=== PATIENT | male | born 1950 | race Caucasian/White ===

== ENCOUNTER → 2016-07-23 | Outpatient (CLI) | payer MEDICARE, OTHER ==
[2016-07-23 09:22] LABS: Basophils # (auto) 0 uL; Basophils % (auto) 0.6 % (0.0-2.0); Eosinophils # (auto) 0.2 uL; Eosinophils % (auto) 4.1 % (0.0-7.0); Hematocrit 40.7 % (41.0-53.0); Hemoglobin 13.9 g/dL (13.5-17.5); Lymphocytes # (auto) 1.5 uL; Lymphocytes % (auto) 31.2 % (10.0-50.0); Mean Corpuscular Hemoglobin 31.4 pg (28.0-32.0); Mean Corpuscular Hgb Conc. 34.1 g/dL (32.0-36.0); Mean Platelet Volume 8.1 fL (7.4-10.4); Monocytes # (auto) 0.4 uL; Monocytes % (auto) 8.8 % (0.0-12.0); Neutrophils # (auto) 2.6 uL; Neutrophils % (auto) 55.3 % (37.0-80.0); Platelet Count (auto) 192 10^3/uL (140-450); Red Cell Distribution Width 13.9 % (11.6-16.0); White Blood Cell 4.8 10^3/uL (4.4-10.8)
[2016-07-23 09:30] LABS: Urine Bilirubin Negative (Negative); Urine Blood Negative /uL (Negative); Urine Color Yellow (Yellow); Urine Glucose Normal (Normal); Urine Ketone Negative (Negative); Urine Nitrite Negative (Negative); Urine RBC 3 /hpf (0 - 3); Urine Urobilinogen Normal (Negative)
[2016-07-23 09:42] LABS: Anion Gap 7 (5-15); Blood Urea Nitrogen 18 mg/dL (7-18); Carbon Dioxide 26 mmol/L (21-32); Chloride 107 mmol/L (98-107); Glucose 107 mg/dL (74-106); Potassium 3.5 mmol/L (3.5-5.1); Sodium 140 mmol/L (136-145)
[2016-07-23 09:43] LABS: Albumin 3.6 g/dL (3.4-5.0); Alkaline Phosphatase 64 U/L (45-117); Aspartate Aminotransferase 22 U/L (15-37); BUN/Creatinine Ratio 23.7; Bilirubin, Total 0.6 mg/dL (0.2-1.0); Calcium 8.2 mg/dL (8.5-10.1); Cholesterol 129 mg/dL (< 200); GFR African American 132 mL/min; GFR Non-African American 109 mL/min; HDL Cholesterol 52 mg/dL (40-59); LDL Cholesterol 78 mg/dL (< 100); Total Protein 7.1 g/dL (6.4-8.2); Triglycerides 87 mg/dL (< 150)
== END | disposition home or self-care (01) ==
LOC: LAB 09:00
PROVIDERS: ATTEND Internal Medicine
DX: N40.0 Benign prostatic hyperplasia without lower urinary tract symptoms (principal); I48.91 Unspecified atrial fibrillation
CPT/HCPCS: 36415; 80053; 80061; 81001; 82043; 84153; 84439; 84443; 84484; 85025; 85379; 85652

== ENCOUNTER → 2016-07-25 | Outpatient (CLI) | payer MEDICARE, OTHER ==
[~2016-07-25] MED LIST: IOHEXOL 350 MG/ML 100ML IJ ONE
== END | disposition home or self-care (01) ==
LOC: CT 10:00
PROVIDERS: ATTEND Internal Medicine
DX: I51.7 Cardiomegaly (principal); R09.89 Other specified symptoms and signs involving the circulatory and respiratory systems; R42 Dizziness and giddiness; R79.89 Other specified abnormal findings of blood chemistry
CPT/HCPCS: 71275; Q9967

== ENCOUNTER → 2016-09-15 | Day surgery (SDC) | payer MEDICARE, OTHER ==
[2016-09-11 11:00] LABS: Basophils # (auto) 0 uL; Basophils % (auto) 0.7 % (0.0-2.0); CONDITION Y; Eosinophils # (auto) 0.2 uL; Eosinophils % (auto) 4.2 % (0.0-7.0); Hematocrit 40.8 % (41.0-53.0); Hemoglobin 13.9 g/dL (13.5-17.5); Lymphocytes # (auto) 1.9 uL; Lymphocytes % (auto) 33.1 % (10.0-50.0); Mean Corpuscular Hgb Conc. 34.1 g/dL (32.0-36.0); Mean Platelet Volume 8.7 fL (7.4-10.4); Monocytes # (auto) 0.5 uL; Monocytes % (auto) 9.6 % (0.0-12.0); Neutrophils % (auto) 52.4 % (37.0-80.0); Platelet Count (auto) 207 10^3/uL (140-450); White Blood Cell 5.7 10^3/uL (4.4-10.8)
[2016-09-11 11:11] LABS: INR 0.94 (0.9-1.15); Partial Thromboplastin Time 27.2 sec (22.64-33.71); Prothrombin Time 10.2 sec (9.37-12.3)
[~2016-09-15] VITALS: Ht 182.9 cm; Wt 101.6 kg
[~2016-09-15] MED LIST changes: +ASPI81TA27 PO; +HYDR25TA4 PO; -IOHEXOL 350 MG/ML 100ML IJ ONE; +LOSA50TA6 PO; +MECL-87 PO; +METO-169 PO; +SODIUM CHLORIDE LOCK 10 ML ONE; +diphenhdrAMINE HCL 50 MG/1 ML VL ONE
[2016-09-15] MEDS: MIDAZOLAM HCL 5 MG/ML-1ML VIAL ONE ×2 (11:36→11:40)
[2016-09-15] MEDS: fentaNYL CITRATE 100 MCG/2 ML VL ONE ×2 (11:36→11:40)
[2016-09-15 12:25] VITALS: BP 132/74
== END | disposition home or self-care (01) ==
LOC: GI 09:42
PROVIDERS: ATTEND Internal Medicine Gastroenterology
DX: K63.5 Polyp of colon (principal); K64.8 Other hemorrhoids; K64.4 Residual hemorrhoidal skin tags; Z90.49 Acquired absence of other specified parts of digestive tract
CPT/HCPCS: 36415; 45380; 45385; 85025; 85610; 85730; J2250

== ENCOUNTER → 2016-10-24 | Outpatient (CLI) | payer MEDICARE, OTHER ==
[~2016-10-24] MED LIST changes: -SODIUM CHLORIDE LOCK 10 ML ONE; -diphenhdrAMINE HCL 50 MG/1 ML VL ONE
[2016-10-24 10:49] LABS: Basophils # (auto) 0 uL; Basophils % (auto) 0.7 % (0.0-2.0); CONDITION Y; Eosinophils # (auto) 0.3 uL; Eosinophils % (auto) 6.2 % (0.0-7.0); Hematocrit 40.8 % (41.0-53.0); Lymphocytes % (auto) 36.3 % (10.0-50.0); Mean Corpuscular Hemoglobin 31.3 pg (28.0-32.0); Mean Corpuscular Hgb Conc. 34.3 g/dL (32.0-36.0); Mean Corpuscular Volume 91.2 fL (80.0-100.0); Mean Platelet Volume 8.3 fL (7.4-10.4); Monocytes # (auto) 0.5 uL; Monocytes % (auto) 9.5 % (0.0-12.0); Neutrophils # (auto) 2.7 uL; Neutrophils % (auto) 47.3 % (37.0-80.0); Platelet Count (auto) 203 10^3/uL (140-450); Red Cell Distribution Width 13.3 % (11.6-16.0); White Blood Cell 5.7 10^3/uL (4.4-10.8)
[2016-10-24 11:03] LABS: Albumin 3.7 g/dL (3.4-5.0); Bilirubin, Total 0.5 mg/dL (0.2-1.0); Calcium 8.2 mg/dL (8.5-10.1); Potassium 3.6 mmol/L (3.5-5.1); Total Protein 7.1 g/dL (6.4-8.2)
== END | disposition home or self-care (01) ==
LOC: LAB 10:20
PROVIDERS: ATTEND Internal Medicine
DX: R59.1 Generalized enlarged lymph nodes (principal)
CPT/HCPCS: 36415; 80053; 83615; 85025

== ENCOUNTER 2017-02-28 19:19 | Emergency (ER) | payer MEDICARE, OTHER ==
[~2017-02-28] VITALS: Ht 182.9 cm; Wt 104.3 kg
[2017-02-28 20:48] LABS: Basophils # (auto) 0 uL; Basophils % (auto) 0.8 % (0.0-2.0); Eosinophils # (auto) 0.1 uL; Eosinophils % (auto) 2.3 % (0.0-7.0); Hematocrit 42.1 % (41.0-53.0); Hemoglobin 14.4 g/dL (13.5-17.5); Lymphocytes # (auto) 0.7 uL; Lymphocytes % (auto) 15.3 % (10.0-50.0); Mean Corpuscular Hemoglobin 31.4 pg (28.0-32.0); Mean Corpuscular Hgb Conc. 34.1 g/dL (32.0-36.0); Monocytes # (auto) 0.7 uL; Monocytes % (auto) 13.9 % (0.0-12.0); Neutrophils # (auto) 3.3 uL; Neutrophils % (auto) 67.7 % (37.0-80.0); Platelet Count (auto) 155 10^3/uL (140-450); Red Blood Cells 4.58 10^6/uL (4.5-5.90); Red Cell Distribution Width 13.3 % (11.8-14.3); White Blood Cell 4.8 10^3/uL (4.4-10.8)
[2017-02-28 20:57] LABS: Alanine Aminotransferase 33 U/L (16-61); Albumin 3.6 g/dL (3.4-5.0); Alkaline Phosphatase 57 U/L (45-117); Anion Gap 9 (5-15); Aspartate Aminotransferase 22 U/L (15-37); BUN/Creatinine Ratio 11.6; Bilirubin, Total 0.3 mg/dL (0.2-1.0); Blood Urea Nitrogen 10 mg/dL (7-18); Carbon Dioxide 26 mmol/L (21-32); Chloride 104 mmol/L (98-107); GFR African American 114 mL/min; GFR Non-African American 94 mL/min; Glucose 106 mg/dL (74-106); Magnesium 2.3 mg/dL (1.6-2.6); Potassium 3.5 mmol/L (3.5-5.1); Sodium 139 mmol/L (136-145); Total Protein 7.5 g/dL (6.4-8.2)
[2017-03-01] VITALS: BP 159/67
== END 2017-03-01 06:03 | disposition left against medical advice (07) ==
LOC: ER 19:19
DX: R50.9 Fever, unspecified (principal); R10.9 Unspecified abdominal pain; Z53.21 Procedure and treatment not carried out due to patient leaving prior to being seen by health care provider
CPT/HCPCS: 36415; 74176; 80053; 83735; 84484; 85025; 93005

== ENCOUNTER → 2017-06-22 | Outpatient (CLI) | payer BC, OTHER | END | disposition home or self-care (01) | LOC: LAB 08:38 | PROVIDERS: ATTEND Internal Medicine | DX: R59.1 Generalized enlarged lymph nodes (principal) | CPT/HCPCS: 36415; 82565; 84520 ==

== ENCOUNTER → 2017-11-04 | Outpatient (CLI) | payer BC, OTHER ==
[2017-11-04 09:09] LABS: Basophils # (auto) 0.1 uL; Basophils % (auto) 2.6 % (0.0-2.0); Eosinophils # (auto) 0.3 uL; Eosinophils % (auto) 5.5 % (0.0-7.0); Hematocrit 42.7 % (41.0-53.0); Hemoglobin 14.4 g/dL (13.5-17.5); Lymphocytes # (auto) 1.7 uL; Lymphocytes % (auto) 32.9 % (10.0-50.0); Mean Corpuscular Hgb Conc. 33.7 g/dL (32.0-36.0); Mean Corpuscular Volume 91.9 fL (80.0-100.0); Monocytes # (auto) 0.4 uL; Monocytes % (auto) 8.6 % (0.0-12.0); Neutrophils # (auto) 2.6 uL; Neutrophils % (auto) 50.4 % (37.0-80.0); Platelet Count (auto) 172 10^3/uL (140-450); Red Blood Cells 4.64 10^6/uL (4.5-5.90); Red Cell Distribution Width 13.4 % (11.8-14.3); White Blood Cell 5.1 10^3/uL (4.4-10.8)
[2017-11-04 09:12] LABS: Urine Bacteria NONE SEEN /hpf (None Seen); Urine Blood Negative /uL (Negative); Urine Mucus FEW (None Seen); Urine Specific Gravity 1.018 (1.001-1.035); Urine WBC <1 /hpf (0 - 3)
[2017-11-04 09:35] LABS: Albumin 3.6 g/dL (3.4-5.0); BUN/Creatinine Ratio 14.1; Calcium 8.5 mg/dL (8.5-10.1); Potassium 3.5 mmol/L (3.5-5.1)
[2017-11-04 09:37] LABS: Bilirubin, Total 0.5 mg/dL (0.2-1.0)
[2017-11-04 10:10] LABS: Free T4 (Free Thyroxine) 0.95 ng/dL (0.89-1.76); Prostate Specific Antigen 0.67 ng/mL (0.0-4.0)
== END | disposition home or self-care (01) ==
LOC: LAB 08:44
PROVIDERS: ATTEND Internal Medicine
DX: I10 Essential (primary) hypertension (principal); R35.1 Nocturia; Z79.82 Long term (current) use of aspirin
CPT/HCPCS: 36415; 80053; 81001; 82043; 82150; 82306; 83036; 83690; 84153; 84439; 84443; 85025; 86677

== ENCOUNTER → 2017-12-02 | Outpatient (CLI) | payer BC ==
[~2017-12-02] MED LIST changes: +LOSA-46 PO; -LOSA50TA6 PO
[2017-12-02 11:18] LABS: Basophils # (auto) 0.1 uL; Basophils % (auto) 1.4 % (0.0-2.0); Eosinophils # (auto) 0.2 uL; Eosinophils % (auto) 5.1 % (0.0-7.0); Hematocrit 41.5 % (41.0-53.0); Hemoglobin 14.3 g/dL (13.5-17.5); Lymphocytes # (auto) 1.5 uL; Lymphocytes % (auto) 31.8 % (10.0-50.0); Mean Corpuscular Hemoglobin 31.8 pg (28.0-32.0); Mean Corpuscular Hgb Conc. 34.5 g/dL (32.0-36.0); Mean Corpuscular Volume 92.2 fL (80.0-100.0); Monocytes # (auto) 0.4 uL; Monocytes % (auto) 8.2 % (0.0-12.0); Neutrophils # (auto) 2.6 uL; Neutrophils % (auto) 53.5 % (37.0-80.0); Nucleated Red Blood Cells % 0.1 %; Platelet Count (auto) 169 10^3/uL (140-450); Red Cell Distribution Width 12.7 % (11.8-14.3); White Blood Cell 4.8 10^3/uL (4.4-10.8)
[2017-12-02 12:24] LABS: Albumin 3.8 g/dL (3.4-5.0); BUN/Creatinine Ratio 13.5; Bilirubin, Total 0.6 mg/dL (0.2-1.0); Calcium 8.2 mg/dL (8.5-10.1); Total Protein 7.1 g/dL (6.4-8.2)
== END | disposition home or self-care (01) ==
LOC: LAB 10:36
PROVIDERS: ATTEND Internal Medicine
DX: R59.1 Generalized enlarged lymph nodes (principal); I10 Essential (primary) hypertension
CPT/HCPCS: 36415; 80053; 83615; 85025

== ENCOUNTER → 2017-12-29 | Outpatient (CLI) | payer MEDICARE ==
[2017-12-29 10:23] LABS: Cholesterol 129 mg/dL (< 200)
[2017-12-29 10:27] LABS: HDL Cholesterol 49 mg/dL (40-59); LDL Cholesterol 80 mg/dL (< 100); Triglycerides 75 mg/dL (< 150)
== END | disposition home or self-care (01) ==
LOC: LAB 09:36
PROVIDERS: ATTEND Internal Medicine
DX: E78.5 Hyperlipidemia, unspecified (principal); E83.51 Hypocalcemia; H15.9 Unspecified disorder of sclera
CPT/HCPCS: 36415; 80061

== ENCOUNTER → 2018-06-18 | Outpatient (CLI) | payer BC ==
[2018-06-18 12:38] LABS: Basophils # (auto) 0.1 uL; Basophils % (auto) 0.9 % (0.0-2.0); Eosinophils # (auto) 0.2 uL; Eosinophils % (auto) 3.2 % (0.0-7.0); Hematocrit 42.6 % (41.0-53.0); Hemoglobin 14.5 g/dL (13.5-17.5); Lymphocytes # (auto) 1.6 uL; Lymphocytes % (auto) 28.4 % (10.0-50.0); Mean Corpuscular Hemoglobin 31.3 pg (28.0-32.0); Mean Corpuscular Hgb Conc. 34.1 g/dL (32.0-36.0); Mean Corpuscular Volume 91.6 fL (80.0-100.0); Monocytes # (auto) 0.5 uL; Neutrophils # (auto) 3.3 uL; Neutrophils % (auto) 58.5 % (37.0-80.0); Nucleated Red Blood Cells % 0.1 %; Platelet Count (auto) 166 10^3/uL (140-450); Red Blood Cells 4.65 10^6/uL (4.5-5.90); Red Cell Distribution Width 13.2 % (11.8-14.3); White Blood Cell 5.7 10^3/uL (4.4-10.8)
[2018-06-18 13:50] LABS: Potassium 3.7 mmol/L (3.5-5.1)
[2018-06-18 13:53] LABS: Albumin 3.9 g/dL (3.4-5.0); Calcium 8.9 mg/dL (8.5-10.1); Magnesium 2.3 mg/dL (1.6-2.6)
[2018-06-18 13:56] LABS: BUN/Creatinine Ratio 15.8
[2018-06-18 13:59] LABS: Bilirubin, Total 0.5 mg/dL (0.2-1.0); Total Protein 7.3 g/dL (6.4-8.2)
== END | disposition home or self-care (01) ==
LOC: LAB 11:49
PROVIDERS: ATTEND Internal Medicine
DX: R25.2 Cramp and spasm (principal); H92.02 Otalgia, left ear
CPT/HCPCS: 36415; 80053; 82785; 83735; 85025

== ENCOUNTER → 2018-07-13 | Outpatient (CLI) | payer BC, OTHER, MEDICARE | END | disposition home or self-care (01) | LOC: XY 08:05 | PROVIDERS: ATTEND Internal Medicine | DX: R25.2 Cramp and spasm (principal); I10 Essential (primary) hypertension; I73.9 Peripheral vascular disease, unspecified | CPT/HCPCS: 93925 ==

== ENCOUNTER → 2018-12-22 | Outpatient (CLI) | payer BC, MEDICARE ==
[~2018-12-22] MED LIST changes: +ASPI-404 PO; -ASPI81TA27 PO; -LOSA-46 PO; +LOSA-69 PO
[2018-12-22 11:20] LABS: Basophils # (auto) 0.1 uL; Basophils % (auto) 1.1 % (0.0-2.0); Eosinophils # (auto) 0.2 uL; Eosinophils % (auto) 3.8 % (0.0-7.0); Hemoglobin 15.4 g/dL (13.5-17.5); Lymphocytes # (auto) 1.7 uL; Lymphocytes % (auto) 31.4 % (10.0-50.0); Mean Corpuscular Hgb Conc. 33.5 g/dL (32.0-36.0); Mean Corpuscular Volume 92.6 fL (80.0-100.0); Monocytes # (auto) 0.5 uL; Monocytes % (auto) 8.5 % (0.0-12.0); Neutrophils % (auto) 55.2 % (37.0-80.0); Platelet Count (auto) 175 10^3/uL (140-450); Red Blood Cells 4.97 10^6/uL (4.5-5.90); Red Cell Distribution Width 13.2 % (11.8-14.3); White Blood Cell 5.5 10^3/uL (4.4-10.8)
[2018-12-22 11:56] LABS: Free T4 (Free Thyroxine) 0.88 ng/dL (0.89-1.76); Prostate Specific Antigen 0.83 ng/mL (0.0-4.0)
[2018-12-22 11:57] LABS: Folate (Folic Acid) 19.74 ng/mL (5.38-24)
[2018-12-22 12:24] LABS: Potassium 3.8 mmol/L (3.5-5.1)
[2018-12-22 12:47] LABS: Albumin 4.1 g/dL (3.4-5.0); Bilirubin, Total 0.5 mg/dL (0.2-1.0); Calcium 9.3 mg/dL (8.5-10.1); Total Protein 8.1 g/dL (6.4-8.2)
== END | disposition home or self-care (01) ==
LOC: LAB 10:35
PROVIDERS: ATTEND Internal Medicine
DX: I48.91 Unspecified atrial fibrillation (principal); I10 Essential (primary) hypertension; R53.83 Other fatigue; G62.9 Polyneuropathy, unspecified
CPT/HCPCS: 36415; 80053; 80061; 82043; 82306; 82607; 82746; 83036; 83880; 84153; 84403; 84439; 84443; 85025; 85652

== ENCOUNTER 2019-01-11 13:05 | Inpatient (IN) | payer BC ==
[~2019-01-11] VITALS: Ht 182.9 cm; Wt 104.5 kg
[2019-01-11 13:54] LABS: Basophils # (auto) 0 uL; Basophils % (auto) 0.8 % (0.0-2.0); Eosinophils # (auto) 0.1 uL; Eosinophils % (auto) 2.6 % (0.0-7.0); Hematocrit 42.7 % (41.0-53.0); Hemoglobin 14.4 g/dL (13.5-17.5); Lymphocytes # (auto) 1.2 uL; Lymphocytes % (auto) 22.2 % (10.0-50.0); Mean Corpuscular Hemoglobin 31.1 pg (28.0-32.0); Mean Corpuscular Hgb Conc. 33.8 g/dL (32.0-36.0); Mean Corpuscular Volume 91.8 fL (80.0-100.0); Monocytes # (auto) 0.4 uL; Monocytes % (auto) 7.1 % (0.0-12.0); Neutrophils # (auto) 3.7 uL; Neutrophils % (auto) 67.3 % (37.0-80.0); Platelet Count (auto) 172 10^3/uL (140-450); Red Blood Cells 4.65 10^6/uL (4.5-5.90); Red Cell Distribution Width 13.3 % (11.8-14.3); White Blood Cell 5.5 10^3/uL (4.4-10.8)
[2019-01-11 14:10] LABS: INR 0.96 (0.9-1.15); Partial Thromboplastin Time 26.5 sec (23.64-32.05)
[2019-01-11 14:15] LABS: Chloride 108 mmol/L (98-107); Potassium 3.6 mmol/L (3.5-5.1); Sodium 142 mmol/L (136-145)
[2019-01-11 14:25] LABS: Alanine Aminotransferase 34 U/L (16-61); Albumin 3.7 g/dL (3.4-5.0); Alkaline Phosphatase 62 U/L (45-117); Anion Gap 7 (5-15); Aspartate Aminotransferase 21 U/L (15-37); BUN/Creatinine Ratio 17.4; Bilirubin, Total 0.4 mg/dL (0.2-1.0); Blood Urea Nitrogen 15 mg/dL (7-18); Calcium 8.5 mg/dL (8.5-10.1); Carbon Dioxide 27 mmol/L (21-32); GFR African American 113 mL/min; GFR Non-African American 94 mL/min; Glucose 158 mg/dL (74-106); Total Protein 7.3 g/dL (6.4-8.2)
[2019-01-11] MEDS ORDERED: SIMV-13 (17:02)
[2019-01-11] MEDS ORDERED: FURO40TA4 (17:02)
[2019-01-11] MEDS ORDERED: TAMS0.4C36 (17:02)
[2019-01-11] MEDS ORDERED: HCTZ25T (17:02)
[2019-01-11] MEDS ORDERED: GAB100C (17:02)
[2019-01-11] MEDS ORDERED: hydrALAZINE HCL 20 MG/ML VL IV PRN (18:30)
[2019-01-11] MEDS ORDERED: MORPHINE SULF INJ 2 MG/ML SYRINGE 1ML IV PRN (18:30)
[2019-01-11] MEDS ORDERED: NITROGLYCERIN 0.4 MG SL TAB SL PRN (18:30)
[2019-01-11] MEDS ORDERED: ONDANSETRON HCL 4 MG/2 ML VIAL IV PRN (18:30)
[2019-01-11] MEDS ORDERED: ACETAMINOPHEN 500 MG TAB PO PRN (18:30)
[2019-01-11 20:10] VITALS: BP 141/77
--- NOTE | 2019-01-11 20:10 | NUR ---
Telemetry admit from [facility] admitted to Telemetry unit. Patient oriented to Whitney Calderon RN and Gilma Dos Santos RN, unit, room, bed, and unit policies regarding patient care and visiting hours. Patient now on continuous telemetry monitoring, tele box #[id number] and telemetry reading on arrival to unit is SR. Patient weighed by bedscale and encouraged to call if they need something. Fall and safety precautions in place. Oxygen at bedside. Call light within reach. All questions and concerns addressed, patient verbalized understanding.
[2019-01-11] MEDS: METOPROLOL TARTRATE 25 MG TAB PO SCH (22:01)
[2019-01-11] MEDS: ATORVASTATIN 20 MG TAB PO SCH (22:02)
[2019-01-11 22:14] VITALS: BP 141/77
[2019-01-11 22:45] LABS: Urine Bacteria NONE SEEN /hpf (None Seen); Urine Blood Negative /uL (Negative); Urine Mucus FEW (None Seen); Urine Specific Gravity 1.015 (1.001-1.035); Urine WBC 1 /hpf (0 - 3)
[2019-01-12] MEDS ORDERED: POTA10TA51 PO (04:05)
[2019-01-12] MEDS ORDERED: MECL-87 PO (04:05)
[2019-01-12] MEDS ORDERED: CHOL20007 PO (04:05)
[2019-01-12 05:48] VITALS: BP 124/69
[2019-01-12 06:36] LABS: Basophils # (auto) 0.1 uL; Basophils % (auto) 1.1 % (0.0-2.0); Eosinophils # (auto) 0.3 uL; Eosinophils % (auto) 4.4 % (0.0-7.0); Hematocrit 39.7 % (41.0-53.0); Hemoglobin 13.5 g/dL (13.5-17.5); Lymphocytes # (auto) 1.9 uL; Lymphocytes % (auto) 32.2 % (10.0-50.0); Mean Corpuscular Hemoglobin 31.5 pg (28.0-32.0); Mean Corpuscular Hgb Conc. 34.1 g/dL (32.0-36.0); Mean Corpuscular Volume 92.4 fL (80.0-100.0); Monocytes # (auto) 0.5 uL; Monocytes % (auto) 8.7 % (0.0-12.0); Neutrophils # (auto) 3.1 uL; Neutrophils % (auto) 53.6 % (37.0-80.0); Nucleated Red Blood Cells % 0.1 %; Platelet Count (auto) 163 10^3/uL (140-450); Red Cell Distribution Width 13.2 % (11.8-14.3); White Blood Cell 5.8 10^3/uL (4.4-10.8)
[2019-01-12 06:48] LABS: Potassium 3.6 mmol/L (3.5-5.1)
[2019-01-12 06:50] LABS: BUN/Creatinine Ratio 19.7
[2019-01-12 06:53] LABS: INR 1.04 (0.9-1.15); Partial Thromboplastin Time 27.3 sec (23.64-32.05)
--- NOTE | 2019-01-12 07:40 | NUR ---
RECEIVED REPORT AND ASSUMED CARE OF PT. A/OX4. DENIED S/S ACUTE DISTRESS. UPDATE PT WITH POC. BED AT LOWEST POSITION. CALL LIGHT AND BELONGINGS WITHIN REACH. WILL CONT TO MONITOR.
[2019-01-12] MEDS ORDERED: ALBUTEROL SULF 2.5 MG/0.5ML(0.5%) NEB SOLN NEB PRN (08:45)
[2019-01-12] MEDS ORDERED: IPRATROPIUM BROM 0.5 MG/2.5ML INH SOL NEB PRN (08:45)
[2019-01-12 09:00] VITALS: BP 122/74
[2019-01-12] MEDS: FAMOTIDINE 20 MG TAB PO SCH (09:34)
[2019-01-12] MEDS: METOPROLOL TARTRATE 25 MG TAB PO SCH ×2 (09:34→22:15)
[2019-01-12] MEDS: ASPirin-EC 81 mg tab PO SCH (09:34)
[2019-01-12] MEDS: LISINOPRIL 10 MG TAB PO SCH (09:35)
--- NOTE | 2019-01-12 10:24 | NUR ---
RT NOTE: NO TX INDICATED AT THIS TIME. NO SIGNS OF RESPIRATORY DISTRESS NOTED. LUNG SOUNDS CLEAR T/O. ON RA SPO2 96 HR 66 RR 16. PT AWARE TO PAGE FOR RESPIRATORY IF NEED FOR TX ARISES. WILL CONTINUE TO MONITOR.
[2019-01-12 10:58] VITALS: BP 122/74
[2019-01-12 13:00] VITALS: BP 127/62
[2019-01-12 13:51] LABS: Cholesterol 121 mg/dL (< 200)
[2019-01-12 13:54] LABS: HDL Cholesterol 43 mg/dL (40-59); LDL Cholesterol 68 mg/dL (< 100); Triglycerides 75 mg/dL (< 150)
[2019-01-12 17:00] VITALS: BP 130/68
--- NOTE | 2019-01-12 19:16 | NUR ---
PT RESTING IN BED. NO S/S ACUTE DISTRESS NOTED. ENDORSED CARE TO NIGHT NURSE.
--- NOTE | 2019-01-12 19:30 | NUR ---
Opening Shift Note Assumed care of patient, awake and alert. No S/S of distress/SOB or pain. Instructed on POC and to call for assist PRN, will continue to monitor for changes Q1hr and PRN.
--- NOTE | 2019-01-12 19:59 | NUR ---
Respiratory note: PT ASSESSED FOR PRN MED NEB TX. PT IS CURRENTLY ON ROOM AIR: HR 67, RR 16, SPO2 96%. PT SHOWS NO S/S OF SOB OR RESPIRATORY DISTRESS. MED NEB TX NOT INDICATED AT THIS TIME. PT AWARE TO CALL RESPIRATORY IF SOB OCCURS. WILL CONTINUE TO MONITOR.
[2019-01-12 21:00] VITALS: BP 140/73
[2019-01-12] MEDS: ATORVASTATIN 20 MG TAB PO SCH (22:14)
[2019-01-12] MEDS: TAMSULOSIN HYDROCHLORIDE 0.4 MG CAP PO SCH (22:14)
[2019-01-13 04:30] VITALS: BP 123/68
--- NOTE | 2019-01-13 05:13 | NUR ---
IV insertion attempt Unsuccessful IV attempt. Patient refusing 2nd attempt at this time. Will attempt at a later time.
[2019-01-13 08:00] VITALS: BP 132/74
--- NOTE | 2019-01-13 08:00 | NUR ---
Opening Shift Note Assumed care of patient, awake and alert. No S/S of distress/SOB or pain. Patient NPO for a stress test, patient tolerated well. Instructed on POC and to call for assist PRN, will continue to monitor for changes Q1hr and PRN.
[2019-01-13] MEDS ORDERED: ADENOSINE 89 MG in GIVE UN-DILUTED 0 ML IV ONE (08:15)
--- NOTE | 2019-01-13 09:44 | NUR ---
RT NOTE: PRN BREATHING TX. NOT INDICATED AT THIS TIME. NO S/S OF SOB. PT. HR 69, RR 16, POX 96% R/A. PT. AWARE TO NOTIFY RN IF BREATHING TX. IS NEEDED.
[2019-01-13] MEDS: LISINOPRIL 10 MG TAB PO SCH (10:10)
[2019-01-13] MEDS: FAMOTIDINE 20 MG TAB PO SCH (10:10)
[2019-01-13] MEDS: METOPROLOL TARTRATE 25 MG TAB PO SCH ×2 (10:10→21:51)
[2019-01-13] MEDS: ASPirin-EC 81 mg tab PO SCH (10:10)
[2019-01-13 12:00] VITALS: BP 144/77
[2019-01-13 17:00] VITALS: BP 121/66
--- NOTE | 2019-01-13 20:16 | NUR ---
Respiratory note: ASSESSMENT FOR PRN MED NEB TX. PT PRESENTING NO RESPIRATORY DISTRESS AT THIS TIME. HR 73, SPO2 97% ON ROOM AIR, RR 18, BS DIMINISHED. NOTIFIED PT TO HAVE RN PAGE FOR MED NEB TX IF NEEDED. WILL CONTINUE TO MONITOR.
[2019-01-13] MEDS: TAMSULOSIN HYDROCHLORIDE 0.4 MG CAP PO SCH (21:51)
[2019-01-13] MEDS: ATORVASTATIN 20 MG TAB PO SCH (21:51)
[2019-01-13 22:00] VITALS: BP 129/69
[2019-01-14 05:15] VITALS: BP 118/65
--- NOTE | 2019-01-14 08:12 | NUR ---
Respiratory note: PT AWAKE, AND ALERT. NO RESPIRATORY DISTRESS NOTED. SPO2 94% ON RA, HR 72, RR 18, BS CLEAR T/O. PRN MEDNEB TX NOT INDICATED. PT INFORMED TO PUSH CALL BUTTON IF INCREASED WOB, SOB, OR WHEEZING OCCURS.
--- NOTE | 2019-01-14 08:28 | NUR ---
Paged Dr. Mustafa regarding stress test result, awaiting to call back.
[2019-01-14 09:00] VITALS: BP 118/67
--- NOTE | 2019-01-14 09:29 | NUR ---
Received a call from Dr. Mustafa, patient may go home with medication management only. Will notify Dr. King.
[2019-01-14] MEDS: ASPirin-EC 81 mg tab PO SCH (09:33)
[2019-01-14] MEDS: LISINOPRIL 10 MG TAB PO SCH (09:34)
[2019-01-14] MEDS: METOPROLOL TARTRATE 25 MG TAB PO SCH (09:34)
[2019-01-14] MEDS: FAMOTIDINE 20 MG TAB PO SCH (09:34)
[2019-01-14] MEDS ORDERED: GABA100C9 PO (09:37)
[2019-01-14] MEDS ORDERED: TAMS0.4C36 PO (09:37)
[2019-01-14] MEDS ORDERED: SIMV-13 PO (09:37)
[2019-01-14 13:00] VITALS: BP 133/72
[2019-01-14] MEDS ORDERED: ASP81EC PO (14:29)
[2019-01-14 14:50] VITALS: BP 117/69
--- NOTE | 2019-01-14 15:41 | NUR ---
Discharge instructions given as ordered. Encourage to follow up with (Follow up with Dr. Pascual in at 11 AM [id number], [place] [address] ext : [phone]. Follow up with Dr. Mccray in 1-2 weeks (Patient prefer) Address : [address] [place] [address] )as instructed. All questions and concerns addressed. Patient verbalized understanding. Medication reconciliation form completed and copy given to patient. IV removed with catheter intact, pressure dressing applied. Telemetry unit returned to ICU. Patient taken to vehicle via wheelchair with all personal belongings, accompanied by staff and family member. No distress noted at time of departure.
--- NOTE | 2019-01-14 15:54 | NUR ---
assessment Patient is a 68 year old male who is alert and oriented. Patients cognitive abilities are intact. Prior to admission patient lived home with his Shannon and functioned independently. Patient informed me he is able to care for his own ADLs. Per patient he will return home to his prior living arrangements post discharge and family will transport him home. Patient has no need for DME. Patients PCP is Dr Pascual. Patient has no post discharge needs identified. I informed patient he has a right to speak to a social media manager regarding all care. I informed patient he has a right to participate in any and all discharge planning. Patient does not have a POA and advanced directive. I have offered patient information on POA and advanced directives. I informed the patient the advantages and benefits of having an Advanced Directive. Patient verbalized understanding and agreed to discharge plan. Addendum: 01/14/19 at 1557 by Lottie LOVELACE Amended: Links added.
== END 2019-01-14 15:40 | disposition home or self-care (01) | DRG 311 ==
LOC: ER 13:05 → TELE 13:06 → TELE-WESTW 20:18
PROVIDERS: ADMIT Nurse Practitioner Acute Care; ATTEND Internal Medicine Nephrology
DX: I24.9 Acute ischemic heart disease, unspecified (principal); D68.59 Other primary thrombophilia; I48.0 Paroxysmal atrial fibrillation; I10 Essential (primary) hypertension; E78.00 Pure hypercholesterolemia, unspecified; J44.9 Chronic obstructive pulmonary disease, unspecified; N40.0 Benign prostatic hyperplasia without lower urinary tract symptoms; E78.5 Hyperlipidemia, unspecified; E87.6 Hypokalemia; Z79.899 Other long term (current) drug therapy; Z82.49 Family history of ischemic heart disease and other diseases of the circulatory system; Z88.8 Allergy status to other drugs, medicaments and biological substances
CPT/HCPCS: 36415; 71045; 78452; 80048; 80053; 80061; 81001; 83880; 84484; 85025; 85610; 85730; 86141; 93005; 93017; 93306; G0378; J0153

== ENCOUNTER → 2019-04-19 | Outpatient (CLI) | payer BC, OTHER, MEDICARE ==
[~2019-04-19] MED LIST changes: +ASP81EC PO; -ASPI-404 PO; +CHOL20007 PO; +GABA100C9 PO; -HYDR25TA4 PO; +SIMV-13 PO; +TAMS0.4C36 PO
[2019-04-19 11:58] LABS: Basophils # (auto) 0.1 uL; Basophils % (auto) 1.3 % (0.0-2.0); Eosinophils # (auto) 0.1 uL; Eosinophils % (auto) 2.2 % (0.0-7.0); Hematocrit 44.5 % (41.0-53.0); Hemoglobin 14.8 g/dL (13.5-17.5); Lymphocytes # (auto) 1.3 uL; Lymphocytes % (auto) 26.7 % (10.0-50.0); Mean Corpuscular Hgb Conc. 33.3 g/dL (32.0-36.0); Mean Corpuscular Volume 92.9 fL (80.0-100.0); Monocytes # (auto) 0.4 uL; Monocytes % (auto) 7.7 % (0.0-12.0); Neutrophils # (auto) 3.1 uL; Neutrophils % (auto) 62.1 % (37.0-80.0); Nucleated Red Blood Cells % 0.1 %; Platelet Count (auto) 190 10^3/uL (140-450); Red Blood Cells 4.79 10^6/uL (4.5-5.90); Red Cell Distribution Width 13.8 % (11.8-14.3)
[2019-04-19 12:17] LABS: Urine Bacteria NONE SEEN /hpf (None Seen); Urine Blood Negative /uL (Negative); Urine Specific Gravity 1.009 (1.001-1.035); Urine WBC <1 /hpf (0 - 3)
[2019-04-19 12:30] LABS: Potassium 3.8 mmol/L (3.5-5.1)
[2019-04-19 12:41] LABS: Albumin 4.1 g/dL (3.4-5.0); BUN/Creatinine Ratio 12.2; Bilirubin, Total 0.5 mg/dL (0.2-1.0); Calcium 8.9 mg/dL (8.5-10.1); Total Protein 8.1 g/dL (6.4-8.2)
== END | disposition home or self-care (01) ==
LOC: LAB 11:27
PROVIDERS: ATTEND Internal Medicine
DX: R10.12 Left upper quadrant pain (principal); R53.83 Other fatigue; R23.2 Flushing
CPT/HCPCS: 36415; 80053; 81001; 82150; 83615; 83690; 84403; 85025; 85652; 86677

== ENCOUNTER → 2019-05-18 | Outpatient (CLI) | payer BC, OTHER ==
[~2019-05-18] MED LIST changes: -MECL-87 PO; +MECL25TA18 PO
== END | disposition home or self-care (01) ==
LOC: LAB 10:18
PROVIDERS: ATTEND Internal Medicine
DX: R10.84 Generalized abdominal pain (principal)
CPT/HCPCS: 36415; 82565; 84520

== ENCOUNTER → 2019-11-18 | Outpatient (CLI) | payer BC, OTHER ==
[~2019-11-18] MED LIST changes: -ASP81EC PO; +ASPI-394 PO
[2019-11-18 09:22] LABS: Basophils # (auto) 0.1 10 ^3/uL (0-0.2); Basophils % (auto) 1.2 % (0.0-2.0); Eosinophils # (auto) 0.2 10 ^3/uL (0-0.8); Eosinophils % (auto) 4.1 % (0.0-7.0); Hematocrit 43.7 % (41.0-53.0); Hemoglobin 14.6 g/dL (13.5-17.5); Lymphocytes # (auto) 1.8 10 ^3/uL (0.4-5.4); Lymphocytes % (auto) 34.4 % (10.0-50.0); Mean Corpuscular Hemoglobin 30.9 pg (28.0-32.0); Mean Corpuscular Hgb Conc. 33.5 g/dL (32.0-36.0); Mean Corpuscular Volume 92.1 fL (80.0-100.0); Monocytes # (auto) 0.5 10 ^3/uL (0-1.3); Monocytes % (auto) 9.1 % (0.0-12.0); Neutrophils # (auto) 2.7 10 ^3/uL (1.6-8.6); Neutrophils % (auto) 51.2 % (37.0-80.0); Platelet Count (auto) 168 10^3/uL (140-450); Red Blood Cells 4.74 10^6/uL (4.5-5.90); Red Cell Distribution Width 13.1 % (11.8-14.3); White Blood Cell 5.3 10^3/uL (4.4-10.8)
[2019-11-18 09:29] LABS: Urine Bacteria NONE SEEN /hpf (None Seen); Urine Blood Negative /uL (Negative); Urine Mucus FEW (None Seen); Urine Specific Gravity 1.019 (1.001-1.035); Urine WBC 1 /hpf (0 - 3)
[2019-11-18 10:11] LABS: Calcium 8.9 mg/dL (8.5-10.1); Potassium 3.7 mmol/L (3.5-5.1); Uric Acid 3.9 mg/dL (3.5-7.2)
[2019-11-18 10:15] LABS: BUN/Creatinine Ratio 15.3; Bilirubin, Total 0.6 mg/dL (0.2-1.0); Total Protein 7.6 g/dL (6.4-8.2)
[2019-11-18 11:36] LABS: Free T4 (Free Thyroxine) 0.99 ng/dL (0.89-1.76); Prostate Specific Antigen 0.93 ng/mL (0.0-4.0)
== END | disposition home or self-care (01) ==
LOC: LAB 08:52
PROVIDERS: ATTEND Internal Medicine
DX: I10 Essential (primary) hypertension (principal); N40.0 Benign prostatic hyperplasia without lower urinary tract symptoms; E78.5 Hyperlipidemia, unspecified; N52.9 Male erectile dysfunction, unspecified
CPT/HCPCS: 36415; 80053; 80061; 81001; 84153; 84402; 84403; 84439; 84443; 84550; 85025; 85652; 86038; 86431

== ENCOUNTER → 2020-07-03 | Outpatient (CLI) | payer BC ==
[~2020-07-03] MED LIST changes: -METO-169 PO; +METO-289 PO
[2020-07-03 12:13] LABS: Basophils # (auto) 0.1 10 ^3/uL (0-0.2); Basophils % (auto) 0.8 % (0.0-2.0); Eosinophils # (auto) 0.2 10 ^3/uL (0-0.8); Eosinophils % (auto) 2.7 % (0.0-7.0); Hematocrit 41.6 % (41.0-53.0); Hemoglobin 14.1 g/dL (13.5-17.5); Lymphocytes # (auto) 1.9 10 ^3/uL (0.4-5.4); Lymphocytes % (auto) 30.3 % (10.0-50.0); Mean Corpuscular Hemoglobin 31.4 pg (28.0-32.0); Mean Corpuscular Hgb Conc. 33.9 g/dL (32.0-36.0); Mean Corpuscular Volume 92.6 fL (80.0-100.0); Monocytes # (auto) 0.5 10 ^3/uL (0-1.3); Monocytes % (auto) 8.4 % (0.0-12.0); Neutrophils # (auto) 3.6 10 ^3/uL (1.6-8.6); Neutrophils % (auto) 57.8 % (37.0-80.0); Nucleated Red Blood Cells % 0.2 %; Platelet Count (auto) 194 10^3/uL (140-450); Red Cell Distribution Width 13.3 % (11.8-14.3); White Blood Cell 6.3 10^3/uL (4.4-10.8)
[2020-07-03 12:35] LABS: Albumin 3.9 g/dL (3.4-5.0); Potassium 3.9 mmol/L (3.5-5.1); Uric Acid 3.5 mg/dL (3.5-7.2)
[2020-07-03 12:39] LABS: BUN/Creatinine Ratio 18.3; Bilirubin, Total 0.6 mg/dL (0.2-1.0); Total Protein 7.4 g/dL (6.4-8.2)
== END | disposition home or self-care (01) ==
LOC: LAB 11:47
PROVIDERS: ATTEND Internal Medicine
DX: I10 Essential (primary) hypertension (principal); I48.91 Unspecified atrial fibrillation
CPT/HCPCS: 36415; 80053; 84443; 84550; 85025